=== PATIENT | female | born 1980 | race African-American/Black ===

== ENCOUNTER 2017-05-25 00:17 | Emergency (ER) | payer OTHER ==
[~2017-05-25] VITALS: Ht 154.9 cm; Wt 58.8 kg
[~2017-05-25 00:17] MED LIST: ELET40TA PO; GABA-112 PO; OXYC-57 PO
[2017-05-25 00:19] VITALS: TEMP 36.9; Ht 154.9 cm; Wt 58.8 kg
[2017-05-25] MEDS ORDERED: ONDANSETRON INJ 2 MG/ML 2 ML VIAL IV STA (00:30)
[2017-05-25] MEDS ORDERED: SODIUM CHLORIDE 0.9% 1000ML 1,000 ML IV STA (00:30)
[2017-05-25] MEDS ORDERED: DEXAMETHASONE SOD INJ 10 MG/ML VIAL IV ONE (00:30)
[2017-05-25] MEDS ORDERED: CEFTRIAXONE SOD INJ 1 GM ADDVIAL IV STA (00:30)
[2017-05-25] MEDS ORDERED: OPTIRAY 320 IV PRN (00:45)
[2017-05-25 00:58] LABS: BASO % 0.2 %; BASO ABS # 0.01 K/uL (0-0.2); COMPLETE YES; EOS % 0.2 %; HEMATOCRIT 38.8 % (37-47); IG% 0.2 %; LYMPH % 31.5 %; LYMPH ABS # 1.68 K/uL (1.2-3.4); MEAN CELL VOLUME 83.6 fL (80-100); MEAN CORPUSCULAR HEMOGLOBIN 28.7 pg (25-34); MEAN CORPUSCULAR HGB CONC 34.3 g/dl (32-36); MEAN PLATELET VOLUME 10.8 fL (7.4-10.4); MONO % 11.2 %; NEUT % 56.7 %; PLATELET COUNT 274 K/uL (130-400); RED BLOOD COUNT 4.64 M/uL (4.2-5.4); WHITE BLOOD COUNT 5.34 K/uL (4.8-10.8)
[2017-05-25 01:15] LABS: BUN/CREATININE RATIO 13.5 (10-20); CALCIUM 8.4 mg/dl (8.5-10.1); CREATININE 0.75 mg/dl (0.60-1.20); POTASSIUM 3.9 mmol/L (3.5-5.1)
[2017-05-25 01:23] LABS: PREG INTERNAL NEGATIVE QC NEG CLEAR BACKGROUND; PREG INTERNAL POSITIVE QC POS CONTROL LINE
--- NOTE | 2017-05-25 02:43 | EMERGENCY ROOM VISIT NOTE ---
History First contact with patient: 00:25 Chief Complaint: NECK PAIN Stated Complaint: NECK SWOLLEN, PAIN IN HEAD History of Present Illness The patient is a 36 year old female who presents to the Emergency Room with complaints of headaches with neck swelling to the right back side of her head for the past day. Patient states she also feels slightly fatigued. No injury to the area. No new shampoo, conditioner or soaps. Patient denies ear pain, fevers, cough, congestion, vision problems, hearing problems, sore throat, dental pain, chest pain, dyspnea, cough, congestion. No history of similar symptoms in the past. No sore throat. No history of similar symptoms in the past. Review of Systems See HPI for pertinent positives & negatives. A total of 10 systems reviewed and were otherwise negative. Past Medical/Surgical History Medical Problems: (1) Benign neoplasm of pituitary gland (2) Calculus Of Kidney (3) Migraine Unspecified W/O Intract Mgrn W/O Status Migrainosus (4) Tubal Ligation Status Family History Hypertension Social History Smoking Status: Current Every Day Smoker Alcohol Use: none Drug Use: none Marital Status: Occupation Status: employed Current/Historical Medications No Active Prescriptions or Reported Meds Physical Exam Vital Signs Date Time Temp Pulse Resp B/P (MAP) Pulse Ox O2 Delivery O2 Flow Rate FiO2 05/25/17 02:08 80 20 143/92 100 Room Air 05/25/17 00:19 36.9 124 19 150/92 99 Room Air Physical Exam VITALS: Vitals are noted on the nurse's note and reviewed by myself. Vital signs stable. GENERAL: Pleasant female, in no acute distress, nondiaphoretic, well-developed well-nourished. SKIN: The skin was without rashes, erythema, edema, or bruising. There is no tenting of the skin. Capillary reflex less than 2 seconds. HEAD: Normocephalic atraumatic. EARS: External auditory canals clear, tympanic membranes pearly epperson without erythema or effusion bilaterally. EYES: Pupils equal round and reactive to light and accommodation. Conjunctivae without injection, sclerae without icterus. Extraocular movements intact. NOSE: Patent, turbinates without inflammation or discharge. No sinus tenderness. MOUTH: Mucous membranes moist. Pharynx without erythema or exudate. Uvula midline. Airway patent. Tongue does not deviate. NECK: Supple without nuchal rigidity. Posterior right greater than left cervical lymphadenopathy. No thyromegaly. Cervical spine is nontender. No JVD. No meningeal signs HEART: Regular rate and rhythm without murmurs gallops or rubs. LUNGS: Clear to auscultation bilaterally without wheezes, rales or rhonchi. No dullness to percussion. No retractions or accessory muscle use. ABDOMEN: Positive bowel sounds x 4. Normal tympanic percussion. Soft, nontender, without masses or organomegaly. Katz sign negative. No guarding or rebound tenderness. MUSCULOSKELETAL: No muscle atrophy, erythema, or edema noted. NEURO: Patient was alert and oriented to person place and time. Normal sensation to light and sharp touch. No focal neurological deficits. Medical Decision & Procedures Laboratory Results 05/25/17 00:45 Red Blood Count 4.64, Mean Corpuscular Volume 83.6, Mean Corpuscular Hemoglobin 28.7, Mean Corpuscular Hemoglobin Concent 34.3, Mean Platelet Volume 10.8, Neutrophils (%) (Auto) 56.7, Lymphocytes (%) (Auto) 31.5, Monocytes (%) (Auto) 11.2, Eosinophils (%) (Auto) 0.2, Basophils (%) (Auto) 0.2, Neutrophils # (Auto ) 3.03, Lymphocytes # (Auto) 1.68, Monocytes # (Auto) 0.60, Eosinophils # (Auto ) 0.01, Basophils # (Auto) 0.01 05/25/17 00:45 Test 05/25/17 00:45 White Blood Count 5.34 K/uL (4.8-10.8) Red Blood Count 4.64 M/uL (4.2-5.4) Hemoglobin 13.3 g/dL (12.0-16.0) Hematocrit 38.8 % (37-47) Mean Corpuscular Volume 83.6 fL (80-100) Mean Corpuscular Hemoglobin 28.7 pg (25-34) Mean Corpuscular Hemoglobin Concent 34.3 g/dl (32-36) Platelet Count 274 K/uL (130-400) Mean Platelet Volume 10.8 fL (7.4-10.4) Neutrophils (%) (Auto) 56.7 % Lymphocytes (%) (Auto) 31.5 % Monocytes (%) (Auto) 11.2 % Eosinophils (%) (Auto) 0.2 % Basophils (%) (Auto) 0.2 % Neutrophils # (Auto) 3.03 K/uL (1.4-6.5) Lymphocytes # (Auto) 1.68 K/uL (1.2-3.4) Monocytes # (Auto) 0.60 K/uL (0.11-0.59) Eosinophils # (Auto) 0.01 K/uL (0-0.5) Basophils # (Auto) 0.01 K/uL (0-0.2) RDW Standard Deviation 40.0 fL (36.4-46.3) RDW Coefficient of Variation 13.2 % (11.5-14.5) Immature Granulocyte % (Auto) 0.2 % Immature Granulocyte # (Auto) 0.01 K/uL (0.00-0.02) Anion Gap 5.0 mmol/L (3-11) Est Creatinine Clear Calc Drug Dose 83.8 ml/min Estimated GFR () 117.2 Estimated GFR (Non- 101.1 BUN/Creatinine Ratio 13.5 (10-20) Calcium Level 8.4 mg/dl (8.5-10.1) Human Chorionic Gonadotropin, Qual NEG (NEG) Medications Administered Medications (Trade) Dose Ordered Sig/Samira Route Start Time Stop Time Status Last Admin Dose Admin Dexamethasone Sodium Phosphate (Decadron Inj) 10 mg NOW ONCE IV 05/25/17 00:30 05/25/17 00:34 DC 05/25/17 01:06 10 MG Ondansetron HCl (Zofran Inj) 4 mg NOW STAT IV 05/25/17 00:30 05/25/17 00:34 DC 05/25/17 01:06 4 MG Sodium Chloride 1,000 ml @ 999 mls/hr Q1H1M STAT IV 05/25/17 00:30 05/25/17 01:30 DC 05/25/17 01:07 999 MLS/HR Ceftriaxone Sodium (Rocephin Inj) 1 gm NOW STAT IV 05/25/17 00:30 05/25/17 00:35 DC 05/25/17 01:06 1 GM ED Course Prior records reviewed and summarized as above. Triage Nursing notes reviewed. Additional history obtained from family The patient's history was concerning for swelling and pain of the posterior lymph nodes Differential diagnosis: Etiologies such as cellulitis, abscess, lymphangitis, infection, cancer, dermatitis, drug eruption, as well as others were entertained.. Physical examination: As above ER treatment provided: IV fluids, Decadron, Rocephin On reassessment the patient felt better. Diagnostics interpreted by me: The labs revealed no leukocytosis Imaging studies: Head CT negative per stat radiology, neck CT concerning for prominent posterior cervical lymph nodes right greater than left. This appears to be posterior cervical lymphadenopathy. Patient had no obvious signs of infection. She was started on antibiotics though. She was strongly encouraged to follow-up with family care in a few days for reevaluation and for further workup or here in the ER sooner for worsening signs or symptoms or as needed. Patient no signs of meningitis. No airway compromise. No abscess on CT. She was well-appearing. She is tolerating fluids. By the evaluation outlined above emergent etiologies such as abscess, as well as others were deemed relatively unlikely. The pt informed about the findings as listed above. All questions were answered and pleased with the treatment. Return instructions were outlined and the patient was discharged in stable condition. Outpatient prescription management: Keflex Referral: The patient was referred back to primary care physician for follow-up in 2 to 3 days for a recheck of the current condition. Case reviewed with my attending Medical Decision As above Medication Reconcilliation Current Medication List: was personally reviewed by me Blood Pressure Screening Patient's blood pressure: Normal blood pressure Impression Primary Impression: Posterior cervical lymphadenopathy Departure Information Dispostion Home / Self-Care Condition GOOD Prescriptions No Active Prescriptions or Reported Meds Referrals Julio Carrero PA-C (PCP) Patient Instructions My [facility] Additional Instructions Cephalexin(Keflex) 500mg: Take one pill four times daily for 10 days. All antibiotics can cause diarrhea. If this occurs and you feel worse or it does not resolve in 1-2 days follow up with your doctor or return to the Emergency Department as this could be signs of serious underlying problems. Any medication can cause an allergic reaction, stop the pills immediately and return to the ER for rash, hives, breathing difficulties, or swelling. Acetaminophen(Tylenol) may be used for fever or pain. Use 1000mg every six hours as needed. Avoid using more than 4000mg in a 24 hour period. Warm compresses to the affected area 4 times daily for 15-20 minutes. Rest and drink plenty of fluids. Continue current medications. Return to the ER for severe pain, fevers, spreading redness, or any worsening of your condition. Follow up with your primary physician within 2-3 days for a recheck of the current condition.
[2017-05-25] MEDS ORDERED: CEPH500C2 PO (02:44)
[2017-05-25] MEDS ORDERED: CEPHALEXIN 500MG HOME PACK 1 EA BTL PO ONE (02:45)
[2017-05-25] MEDS ORDERED: OXYCODONE IR HOME PACK PO ONE (02:45)
[2017-05-25 02:59] VITALS: BP 114/80; PULSE 75; O2SAT 99
--- NOTE | 2017-05-25 06:57 | DIAGNOSTIC IMAGING REPORT ---
CT SCAN OF THE BRAIN WITHOUT IV CONTRAST CLINICAL HISTORY: Headache. Lightheadedness. COMPARISON STUDY: No priors. TECHNIQUE: Unenhanced axial CT scan of the brain is performed from the vertex to the skull base. A dose lowering technique was utilized adhering to the principles of ALARA. FINDINGS: Brain parenchyma: The brain parenchyma is normal in appearance. There is no hemorrhage, mass effect, or evidence of acute territorial ischemia by CT criteria. Juarez-white matter is preserved. No extra-axial fluid collection is seen. Ventricles, sulci, cisterns: Normal in configuration. Intracranial vasculature: The visualized intracranial vasculature at the skull base is normal in appearance. Calvarium: Unremarkable. Sinuses and mastoids: The visualized paranasal sinuses are clear. The mastoid air cells are well pneumatized. Orbits: The bony orbits are grossly intact. IMPRESSION: No acute intracranial abnormality. Electronically signed by: Jimmie Covington M.D. 05/25/2017 6:55 AM Dictated Date/Time: 05/25/2017 6:54 AM
--- NOTE | 2017-05-25 07:08 | DIAGNOSTIC IMAGING REPORT ---
CT SCAN OF THE NECK WITH IV CONTRAST CLINICAL HISTORY: Right posterior neck pain and swelling. Headache. Lightheadedness. COMPARISON STUDY: No priors. TECHNIQUE: Following the IV administration of 83 cc of Optiray 320, CT scan of the soft tissues of the neck was performed from the skull base to the upper chest. Images are reviewed in the axial, sagittal, and coronal planes. IV contrast was administered without complication. A dose lowering technique was utilized adhering to the principles of ALARA. CT DOSE: 915.09 mGy.cm FINDINGS: Soft tissues: No inflammatory process or fluid collection is identified. Pharynx: The nasopharynx, oropharynx, and laryngeal pharynx are normal in appearance. The pharyngeal airway is widely patent. There is no evidence of mass lesion. The vocal cords are symmetric. The parapharyngeal fat is well maintained. The prevertebral/retropharyngeal soft tissues are within normal limits. Lymphadenopathy: There are shotty posterior cervical lymph nodes are seen bilaterally. The largest is seen on the right on image #132 and measures up to 1.2 cm. These are not pathologically enlarged by size criteria. Thyroid: Normal in size and attenuation. A 5 mm low-attenuation nodule is seen in the right lobe. Salivary glands: The parotid and submandibular glands are within normal limits. Brain parenchyma: The visualized brain parenchyma at the skull base is normal in appearance. Vascular structures: The internal carotid arteries and jugular veins are widely patent. Skeletal structures: Imaged portions of the calvarium at the skull base are within normal limits. The cervical spine appears intact. Sinuses and mastoids: The visualized paranasal sinuses are clear. The mastoid air cells are well pneumatized. Orbits: The bony orbits are intact. Orbital contents are within normal limits. Lung apices: Mild paraseptal emphysematous changes noted in the upper lobes. Visualized apical lung parenchyma is otherwise clear. IMPRESSION: 1. No acute abnormality is identified. 2. There are shotty posterior cervical lymph nodes is seen bilaterally. These are not pathologically enlarged by size criteria and may be on a reactive basis. Clinical correlation and clinical follow-up follow-up is recommended. 3. Mild paraseptal emphysematous change is present at the lung apices. Electronically signed by: Jimmie Covington M.D. 05/25/2017 7:07 AM Dictated Date/Time: 05/25/2017 7:01 AM
== END 2017-05-25 02:59 | disposition home or self-care (01) ==
LOC: C.EDB 00:18
DX: R59.0 Localized enlarged lymph nodes (principal); F17.200 Nicotine dependence, unspecified, uncomplicated; Z87.442 Personal history of urinary calculi; Z98.51 Tubal ligation status; Z82.49 Family history of ischemic heart disease and other diseases of the circulatory system